=== PATIENT | female | born 1945 | race Caucasian/White ===

== ENCOUNTER 2017-04-18 16:53 | Inpatient (IN) ==
[2017-04-18] MEDS ORDERED: Acetaminophen 325 MG TABLET PO PRN (19:51)
[2017-04-18] MEDS: APIXABAN 5 MG TABLET PO SCH (22:06)
[2017-04-18] MEDS: Ipratropium/Albuterol Neb 3 ML IH SCH (22:06)
[2017-04-19 05:27] LABS: Basophils # 0.1 K/mcL (0.0-0.2); Basophils % 0.7 %; Eosinophils # 0.5 K/mcL (0.0-0.6); Eosinophils % 6.4 %; Hematocrit 31.1 % (35.3-44.9); Hemoglobin 10.4 g/dL (11.5-15.4); Immature Granulocytes % 0.9 % (0-4); Lymphocytes # 1.2 K/mcL (0.6-4.6); Lymphocytes % 16.1 %; Mean Corpuscular HGB Conc 33.4 g/dL (31.6-35.5); Mean Corpuscular Volume 89.6 fL (83.0-100.0); Mean Platelet Volume 9.3 fL (9.4-12.4); Monocytes # 0.8 K/mcL (0.0-1.3); Monocytes % 10.5 %; Platelet Count 333 K/mcL (140-400); Red Blood Count 3.47 M/mcL (3.82-4.97); Red Cell Distribution Width 13.3 % (11.5-14.5); Segmented Neutrophils % 65.4 %
[2017-04-19 05:31] LABS: Activated Partial Thrombo Time 35.1 Seconds (26.0-36.0); INR 1.9; Prothrombin Time 21.1 Seconds (9.4-12.1)
[2017-04-19 05:38] LABS: BUN/Creatinine Ratio 9 (6-26); Blood Urea Nitrogen 7 mg/dL (7-20); Calcium 9.4 mg/dL (8.6-10.8); Carbon Dioxide 28 mEq/L (19-29); Chloride 106 mEq/L (98-109); Glucose 108 mg/dL (70-99); Osmolality,Calculated 295 (280-300); Potassium 4.5 mEq/L (3.5-4.5); Sodium 143 mEq/L (136-145); eGFR For African Americans > 60 (> 60); eGFR For Non-African Americans > 60 (> 60)
[2017-04-19] MEDS ORDERED: levoFLOXacin 750 MG TABLET PO SCH (09:00)
[2017-04-19] MEDS: Ipratropium/Albuterol Neb 3 ML IH SCH ×2 (09:09→09:15)
[2017-04-19] MEDS: APIXABAN 5 MG TABLET PO SCH (09:15)
[2017-04-19 11:36] VITALS: BP 131/73
--- NOTE | 2017-04-19 12:07 | Internal Med History&Physical ---
Date of Encounter: 04/19/17 Time of Encounter: 12:05 Assessment and Plan (1) Fracture of ankle, trimalleolar, closed Current visit: No Status: Chronic Patient had the ankle fracture which probably precipitated her DVT. That has been 3 months that Qualifiers: Encounter type: initial encounter Laterality: left Qualified Code(s): S82.852A - Displaced trimalleolar fracture of left lower leg, initial encounter for closed fracture (2) Pulmonary embolism on left Current visit: No Status: Acute She is starting becoming short of breath was noted to have DVT and PE (3) Left leg DVT Current visit: No Status: Acute Cause of PE Qualifiers: Affected thrombotic vein of extremity: femoral Chronicity: acute Qualified Code(s): I82.412 - Acute embolism and thrombosis of left femoral vein Internal Medicine - H&P: HPI Chief complaint: Deconditioning Admitted From: Hospital to Hospital Transfer Plans for Post Hospital Care: Home History of present illness: Ms. Norman is a 72 year old female Patient had an ankle fracture had surgery and subsequent to that get short of breath. Was noted to have DVTs in the effected limb and also PEs. She was treated aggressively Past Med Surg Social Fam HX - Past Medical History Source: old records reviewed Medical history: DVT, GERD, pulmonary embolus Psychiatric history: depression - Past Surgical History Surgical History: orthopedic, other - Social History Smoking Status: Never smoker Smokeless Tobacco Status: No Alcohol use: none Drug use: none - Family History Father Family Member Ethnicity: Non- Living Status: Hx Family Cardiac Disorders: Yes (HLD, HTN, DVTs) Mother Family Member Ethnicity: Non- Living Status: Still Living Hx Family Cardiac Disorders: Yes (Afib, HTN, CHF) Hx Family Neurologic Disorders: Yes (Dementia) Brother Family Member Ethnicity: Non- Living Status: Still Living Hx Family Cardiac Disorders: Yes (DVTs/PEs) Sister Family Member Ethnicity: Non- Living Status: Still Living Hx Family Cardiac Disorders: Yes (HTN, HLD) Hx Family Cancer: Yes (Thyroid) Hx Family Endocrine Disorder: Yes (DM) Internal Medicine - H&P: Meds Omeprazole [PriLOSEC] 20 mg PO DAILY 01/11/17 [History] Oxybutynin Chloride [Ditropan Xl] 10 mg PO DAILY 01/11/17 [History] Paroxetine HCl [Paxil] 20 mg PO DAILY 01/11/17 [History] 3 Allergy/AdvReac Type Severity Reaction Status Date / Time meloxicam AdvReac Gastrointestinal Verified 04/12/17 18:22 Upset meperidine [From Demerol] AdvReac Rash Verified 04/12/17 18:22 Oxycodone [From Percocet] AdvReac Rash Verified 04/12/17 18:22 Penicillins AdvReac Rash Verified 04/12/17 18:22 propoxyphene AdvReac Itching Verified 04/12/17 18:22 [From Darvocet-N 100] All Systems PM: A 10-system review of systems was performed and is negative for pertinent findings except as documented above in the HPI. - Psychiatric Psychiatric: depression - Constitutional Vitals: Temp Pulse Resp BP Pulse Ox 98.3 F 82 16 131/73 95 04/19/17 11:35 04/19/17 11:35 04/19/17 11:35 04/19/17 11:35 04/19/17 11:35 - Head Head exam: Present: atraumatic, normal inspection, normocephalic - Neck Neck exam general surgery: Present: supple, trachea midline. Absent: lymphadenopathy - Respiratory Respiratory exam: Present: CTAB. Absent: accessory muscle use, rales, rhonchi, wheezes - Cardiovascular Cardiovascular exam: Present: RRR, +S1, +S2. Absent: diastolic murmur, gallop, rubs, systolic murmur Internal Med - H&P Results - Labs CBC & Chem 7: 04/19/17 05:00 04/19/17 05:00 Labs: Short CBC 04/19/17 Range/Units 05:00 WBC 7.7 (4.3-11.1) K/mcL Hgb 10.4 L (11.5-15.4) g/dL Hct 31.1 L (35.3-44.9) % Plt Count 333 (140-400) K/mcL Neutrophils # 5.0 (1.6-8.9) K/mcL BMP 04/19/17 05:00 Sodium 143 Potassium 4.5 D Chloride 106 Carbon Dioxide 28 BUN 7 Creatinine 0.79 Glucose 108 H Calcium 9.4 Lab is stable
--- NOTE | 2017-04-19 12:13 | Discharge Summary ---
Date of Encounter: 04/19/17 Time of Encounter: 12:11 - Discharge Diagnosis (1) Fracture of ankle, trimalleolar, closed Priority: Secondary Status: Chronic Qualifiers: Encounter type: initial encounter Laterality: left Qualified Code(s): S82.852A - Displaced trimalleolar fracture of left lower leg, initial encounter for closed fracture (2) Pulmonary embolism on left Priority: Primary Status: Acute (3) Left leg DVT Priority: Secondary Status: Acute Qualifiers: Affected thrombotic vein of extremity: femoral Chronicity: acute Qualified Code(s): I82.412 - Acute embolism and thrombosis of left femoral vein - Discharge Medications Home Medications: Omeprazole [PriLOSEC] 20 mg PO DAILY 01/11/17 [History] Oxybutynin Chloride [Ditropan Xl] 10 mg PO DAILY 01/11/17 [History] Paroxetine HCl [Paxil] 20 mg PO DAILY 01/11/17 [History] Allergies/Adverse Reactions: 3 Allergy/AdvReac Type Severity Reaction Status Date / Time meloxicam AdvReac Gastrointestinal Verified 04/12/17 18:22 Upset meperidine [From Demerol] AdvReac Rash Verified 04/12/17 18:22 Oxycodone [From Percocet] AdvReac Rash Verified 04/12/17 18:22 Penicillins AdvReac Rash Verified 04/12/17 18:22 propoxyphene AdvReac Itching Verified 04/12/17 18:22 [From Darvocet-N 100] Date of admission: 04/18/17 18:34 Primary care physician: Jaden Marroquin, Consults: 04/18/17 19:53 Consult to Occupational Therapy [CONS] Routine Comment: Evaluate, develop and implement POC Reason for Consult: left ankle fx, nwb left leg Consult to Physical Therapy [CONS] Routine Comment: Evaluate, develop and implement POC Reason for Consult: left ankle fx, nwb left leg Consult to Recreational Therapy [CONS] Routine Comment: Evaluate, develop and implement POC Discharging clinician: Jhoan Araiza Anticipated date of discharge: 04/19/17 - Patient Status Disposition: Home, Self-Care Condition: Good Overall status at discharge: patient is progressing back to baseline - Discharge Instructions Follow Up With: Jaden Marroquin DO [Primary Care Provider] - Interval History: Patient is doing well PT said she could be discharged Hospital course: Ms. Norman is a 72 year old female - Time Spent with Patient Total time spent providing and/or coordinating discharge services: Less than 30 minutes - Constitutional Vitals: Temp Pulse Resp BP Pulse Ox 98.3 F 82 16 131/73 95 04/19/17 11:35 04/19/17 11:35 04/19/17 11:35 04/19/17 11:35 04/19/17 11:35 - Head Head exam: Present: atraumatic, normal inspection, normocephalic - Neck Neck exam general surgery: Present: supple, trachea midline. Absent: lymphadenopathy - Respiratory Respiratory exam: Present: CTAB. Absent: accessory muscle use, rales, rhonchi, wheezes - Cardiovascular Cardiovascular exam: Present: RRR, +S1, +S2. Absent: diastolic murmur, gallop, rubs, systolic murmur
[2017-04-19] MEDS ORDERED: predniSONE 20 MG TABLET PO SCH (21:00)
[2017-04-24] MEDS ORDERED: predniSONE 20 MG TABLET PO SCH (09:00)
[2017-04-25] MEDS ORDERED: APIXABAN 5 MG TABLET PO SCH (21:00)
[2017-04-28] MEDS ORDERED: predniSONE 10 MG TABLET PO SCH (09:00)
[2017-05-02] MEDS ORDERED: predniSONE 20 MG TABLET PO SCH (09:00)
[2017-05-04] MEDS ORDERED: predniSONE 10 MG TABLET PO SCH (09:00)
== END 2017-04-19 16:20 | disposition home or self-care (01) | DRG 559 ==
LOC: INPGRE 18:34
PROVIDERS: ADMIT Internal Medicine; ATTEND Internal Medicine